=== PATIENT | male | born 1955 ===

== ENCOUNTER 2017-08-11 12:45 | Emergency (ER) | payer BC ==
[2017-08-11] MEDS ORDERED: Albuterol-Ipratrop 3 mg / 0.5 (3 ml) UD INH STA (13:51)
[2017-08-11] MEDS ORDERED: Albuterol-Ipratrop 3 mg / 0.5 (3 ml) UD ONE (13:56)
--- NOTE | 2017-08-11 15:04 | RAD ---
Chest x-ray two views History: Shortness of breath. Comparison: None available. Findings: Minimal apical pleural thickening. On the lateral view, there is some mild opacification seen posterior to the inferior sternum, nonspecific. Clinical correlation. No focal infiltrate or effusion. Small rounded nodular density in the right hilar region may represent prominent vessel on end. Heart size within normal limits. Degenerative changes in the spine and shoulders. Impression: Minimal apical pleural thickening. On the lateral view, there is some mild opacification seen posterior to the inferior sternum, nonspecific. Clinical correlation. No focal infiltrate or effusion.
[2017-08-11 15:48] VITALS: RESP 18
--- NOTE | 2017-08-11 15:49 | C.PDOC ---
History Of Present Illness 62yo male, with history of asthma, came in complaining of cough for the past 2 days. Patient states the cough is productive with the sputum being clear to white. He also reports some shortness of breath since last night. Patient states he ran out of his inhaler, and feels as if he is wheezing. He denies any fever, chills or chest pain, no recent travel and no history of PE. Time Seen by Provider: 08/11/17 15:32 Chief Complaint (Nursing): Shortness Of Breath History Per: Patient History/Exam Limitations: no limitations Onset/Duration Of Symptoms: Days Current Symptoms Are (Timing): Still Present Associated Symptoms: Dyspnea, Cough, Sputum Production Preciptating Factors: Ran Out Of Meds Additional History Per: Patient Past Medical History Reviewed: Historical Data, Nursing Documentation, Vital Signs Vital Signs: Last Vital Signs Temp 97.9 F 08/11/17 16:01 Pulse 78 08/11/17 16:01 Resp 18 08/11/17 16:01 BP 132/82 08/11/17 16:01 Pulse Ox 97 08/11/17 16:01 - Medical History PMH: Asthma Surgical History: No Surg Hx Family History: States: Unknown Family Hx - Social History Hx Alcohol Use: No Hx Substance Use: No Review Of Systems Constitutional: Negative for: Fever, Chills Eyes: Negative for: Redness ENT: Negative for: Ear Pain, Nose Congestion, Throat Pain Cardiovascular: Negative for: Chest Pain Respiratory: Positive for: Cough, Shortness of Breath, Sputum Gastrointestinal: Negative for: Abdominal Pain Musculoskeletal: Negative for: Neck Pain, Back Pain Skin: Negative for: Rash Neurological: Negative for: Headache Physical Exam - Physical Exam Appears: Non-toxic, No Acute Distress Skin: Normal Color, Warm, Dry Head: Atraumatic, Normacephalic Eye(s): bilateral: Normal Inspection, PERRL, EOMI Ear(s): Bilateral: Normal (no erythema) Nose: Normal Oral Mucosa: Moist Throat: Normal, No Erythema, No Exudate, No Drooling, No Mass Neck: Normal ROM, Supple Cardiovascular: Rhythm Regular Respiratory: Normal Breath Sounds, No Rhonchi, No Wheezing Extremity: Bilateral: Atraumatic, Normal Color And Temperature, Normal ROM Pulses: Left Radial: Normal Neurological/Psych: Oriented x3, Normal Speech Gait: Steady ED Course And Treatment O2 Sat by Pulse Oximetry: 94 (RA) Medical Decision Making Medical Decision Making: Impression: Shortness of breath and cough Note: The patient was evaluated by ED provider after receiving a duoneb treatment. Patient was wheezing on initial exam by RN, who gave treatment for wheeze. Upon my evaluation, patient lungs clear and he reports feeling much better and is requesting refills on his medication. CXR ordered and reviewed. Radiology read CXR: Minimal apical pelural thickening. On the lateral view, there is some mild opacification seen posterior to the inferior sternum, nonspecific. Clinical correlation. No focal infiltrate or effusion. Disposition Counseled Patient/Family Regarding: Diagnosis, Need For Followup, Rx Given - Disposition Referrals: Harsha Valdez MD [Staff Provider] - Disposition: HOME/ ROUTINE Disposition Time: 15:47 Condition: IMPROVED Additional Instructions: Please follow up with your primary doctor Take asthma medications as directed Xray of chest was normal, no pneumonia Return to the emergency department at any time if symptoms persist or worsen. Por favor ilana un seguimiento con alcazar doctor primario Siesta Key los medicamentos contra el asma dea se indica La radiografa del trax era normal, sin neumona Regrese al departamento de emergencia en cualquier momento si los sntomas persisten o empeoran. Prescriptions: Albuterol HFA [Ventolin HFA 90 mcg/actuation (8 g)] 1 puff IH Q4 #1 puff Mometasone/Formoterol [Dulera 200 Mcg/5 Mcg Inhaler] 13 gm IH DAILY #1 hfa.[email or web address] Prednisone 50 mg PO DAILY #5 tablet Instructions: Asthma (DC) Forms: [employer] (Armenian) Print Language: NAURUAN - POA Present On Arrival: None - Clinical Impression Clinical Impression: Upper respiratory infection, Asthma - PA / CHIEF OF PRODUCTION / Resident Statement MD/DO has reviewed & agrees with the documentation as recorded. - Scribe Statement The provider has reviewed the documentation as recorded by the Scribe (Ni Benoit) Provider Scribe Attestation: All medical record entries made by the Scribe were at my direction and personally dictated by me. I have reviewed the chart and agree that the record accurately reflects my personal performance of the history, physical exam, medical decision making, and the department course for this patient. I have also personally directed, reviewed, and agree with the discharge instructions and disposition.
[2017-08-11 16:02] VITALS: BP 132/82; PULSE 78; TEMP 97.9
[2017-08-14 19:39] VITALS: O2SAT 94
== END 2017-08-11 16:02 | disposition home or self-care (01) ==
LOC: C.ER 12:45
DX: J45.909 Unspecified asthma, uncomplicated (principal); J06.9 Acute upper respiratory infection, unspecified